=== PATIENT | female | born 1945 | race Caucasian/White ===

== ENCOUNTER 2017-01-01 10:29 | Emergency (ER) | payer OTHER, MEDICARE ==
[~2017-01-01] VITALS: Ht 162.6 cm; Wt 63.0 kg
[~2017-01-01 10:29] MED LIST: ASPI-1063 PO; BUPR-120 PO; CLOP75TA2 PO; PRO40 PO; VENL75TA54 PO
[2017-01-01 10:30] VITALS: BP_SYST 160
[2017-01-01] MEDS ORDERED: NACL 0.9% 1,000 ML IV ONE (11:01)
[2017-01-01] MEDS ORDERED: DIPHENHYDRAMINE INJ 50 MG/ML VIAL IVP ONE (11:15)
[2017-01-01] MEDS ORDERED: methylPREDNISolone SOD SUCC/PF 62.5 MG/ML VIAL IVP ONE (11:15)
[2017-01-01] MEDS ORDERED: FAMOTIDINE PF 20 MG/2 ML VIAL IVP ONE (11:15)
[2017-01-01 11:55] LABS: BASOPHILS % (AUTO) 0.7 % (0.0-2.0); EOSINOPHILS # (AUTO) 0.1 K/uL (0.0-0.4); EOSINOPHILS % (AUTO) 3.4 % (0.0-4.0); HEMOGLOBIN 12.5 g/dL (12.0-16.0); LYMPHOCYTES # (AUTO) 1.8 K/uL (1.0-5.5); LYMPHOCYTES % (AUTO) 43.4 % (20.5-51.5); MEAN CORPUSCULAR HEMOGLOBIN 27 pg (27-31); MEAN CORPUSCULAR HGB CONC 33 % (32-36); MEAN CORPUSCULAR VOLUME 81 fL (79.0-98.0); MONOCYTES # (AUTO) 0.5 K/uL (0.0-1.0); MONOCYTES % (AUTO) 11.3 % (1.7-9.3); NEUTROPHILS # (AUTO) 1.7 K/uL (1.8-7.7); NEUTROPHILS % (AUTO) 41.2 % (40.0-70.0); PLATELET COUNT (AUTO) 153 K/uL (130-430); RED BLOOD CELL COUNT(AUTO) 4.68 MIL/uL (4.2-6.2); WHITE BLOOD COUNT (AUTO) 4.1 K/uL (4.8-10.8)
[2017-01-01 11:58] LABS: CALCIUM 9.5 mg/dL (8.4-11.0); CHLORIDE 107 mmol/L (98-107); GLUCOSE 90 mg/dL (70-99); POTASSIUM 4.5 mmol/L (3.5-5.1); SODIUM SERUM 140 mmol/L (136-145); UREA NITROGEN, BLOOD 9 mg/dL (8-21)
[2017-01-01 11:59] LABS: ANION GAP < 3 (5-15); GFR AFRICAN AMERICAN 157 mL/min (>90)
[2017-01-01 12:03] LABS: ALANINE AMINOTRANSFERASE 13 U/L (12-78); ALBUMIN 3.6 g/dL (3.4-4.8); ASPARTATE AMINOTRANSFERASE 28 U/L (10-37); TOTAL BILIRUBIN 0.7 mg/dL (0.0-1.0); TOTAL PROTEIN, SERUM 7.2 g/dL (6.4-8.3)
[2017-01-01 13:30] VITALS: BP_SYST 131
== END 2017-01-01 13:30 | disposition home or self-care (01) ==
LOC: SED 10:29
DX: L50.0 Allergic urticaria (principal); T78.40XA Allergy, unspecified, initial encounter; R51 Headache; Z90.89 Acquired absence of other organs; Z90.49 Acquired absence of other specified parts of digestive tract; Z88.5 Allergy status to narcotic agent; Z86.19 Personal history of other infectious and parasitic diseases; X58.XXXA Exposure to other specified factors, initial encounter
CPT/HCPCS: 36415; 70450; 80053; 84484; 85025; 93005; 96361; 96374; 96375; 99285; J1200; J2930; J3490; J7030

== ENCOUNTER 2017-07-20 09:35 | Emergency (ER) | payer OTHER, MEDICARE ==
[~2017-07-20] VITALS: Ht 157.5 cm; Wt 62.1 kg
[2017-07-20 09:35] VITALS: BP_SYST 144
[2017-07-20] MEDS ORDERED: methylPREDNISolone SOD SUCC/PF 62.5 MG/ML VIAL IM ONE (10:30)
[2017-07-20] MEDS ORDERED: DIPHENHYDRAMINE INJ 50 MG/ML VIAL IM ONE (10:30)
[2017-07-20 11:15] VITALS: BP_SYST 139
== END 2017-07-20 11:15 | disposition home or self-care (01) ==
LOC: SED 09:35
DX: L50.9 Urticaria, unspecified (principal); Z88.5 Allergy status to narcotic agent; Z86.19 Personal history of other infectious and parasitic diseases; Z79.899 Other long term (current) drug therapy
CPT/HCPCS: 96372; 99284; J1200; J2930

== ENCOUNTER 2018-08-20 17:55 | Emergency (ER) | payer OTHER, MEDICARE ==
[~2018-08-20] VITALS: Ht 157.5 cm; Wt 61.2 kg
[2018-08-20 17:55] VITALS: BP_SYST 170
[~2018-08-20 17:55] MED LIST changes: -ASPI-1063 PO; +ASPI-1154 PO
[2018-08-20] MEDS ORDERED: NACL 0.9% 1,000 ML IV ONE (18:02)
[2018-08-20] MEDS ORDERED: ASPIRIN 81 MG TAB.CHEW PO ONE (18:15)
[2018-08-20] MEDS ORDERED: ONDANSETRON HCL 4 MG/2 ML VIAL IVP ONE (18:15)
[2018-08-20 18:23] LABS: BILIRUBIN,URINE NEGATIVE (NEGATIVE); BLOOD, URINE NEGATIVE (NEGATIVE); CLARITY/URINE CLEAR (CLEAR); COLOR,URINE YELLOW (YELLOW); GLUCOSE,URINE NEGATIVE (NEGATIVE); KETONES,URINE NEGATIVE (NEGATIVE); LEUKOCYTE ESTERASE ,URINE NEGATIVE (NEGATIVE); NITRITE, URINE NEGATIVE (NEGATIVE); PH,URINE 6.5 (5.0-8.0); PROTEIN URINE NEGATIVE (NEGATIVE); UROBILINOGEN,URINE 0.2 (0.2-1.0)
[2018-08-20 18:53] LABS: HEMATOCRIT 43.5 % (36-48); HEMOGLOBIN 14.3 g/dL (12.0-16.0); MEAN CORPUSCULAR HEMOGLOBIN 27 pg (27-31); MEAN CORPUSCULAR HGB CONC 33 % (32-36); MEAN CORPUSCULAR VOLUME 82 fL (79.0-98.0); NEUTROPHILS % (AUTO) 28.7 % (40.0-70.0); PLATELET COUNT (AUTO) 154 K/uL (130-430); RED BLOOD CELL COUNT(AUTO) 5.28 MIL/uL (4.2-6.2); RED CELL DISTRIBUTION WIDTH 15.6 % (9.0-15.0); WHITE BLOOD COUNT (AUTO) 5.4 K/uL (4.8-10.8)
[2018-08-20 18:54] LABS: BASOPHILS % (AUTO) 0.3 % (0.0-2.0); EOSINOPHILS # (AUTO) 0.1 K/uL (0.0-0.4); EOSINOPHILS % (AUTO) 2.1 % (0.0-4.0); LYMPHOCYTES # (AUTO) 3.4 K/uL (1.0-5.5); LYMPHOCYTES % (AUTO) 61.9 % (20.5-51.5); MONOCYTES # (AUTO) 0.4 K/uL (0.0-1.0); NEUTROPHILS # (AUTO) 1.6 K/uL (1.8-7.7)
[2018-08-20 18:57] LABS: ANION GAP 4 (5-15); CALCIUM 10.1 mg/dL (8.4-11.0); CHLORIDE 101 mmol/L (98-107); CREATININE 0.59 mg/dL (0.55-1.30); GLUCOSE 92 mg/dL (70-99); POTASSIUM 3.9 mmol/L (3.5-5.1); SODIUM SERUM 135 mmol/L (136-145); UREA NITROGEN, BLOOD 12 mg/dL (8-21)
[2018-08-20 19:00] LABS: PROTHROMBIN TIME 9.9 SECS (9.5-12.5)
[2018-08-20 19:01] LABS: ALANINE AMINOTRANSFERASE 19 U/L (12-78); ALBUMIN 4.5 g/dL (3.4-4.8); ASPARTATE AMINOTRANSFERASE 27 U/L (10-37); LIPASE 187 U/L (73-393); TOTAL BILIRUBIN 0.6 mg/dL (0.0-1.0)
[2018-08-20] MEDS ORDERED: DENO60DI SQ (19:56)
[2018-08-20] MEDS ORDERED: ROSU10TA PO (19:56)
[2018-08-20] MEDS ORDERED: ACET-2165 PO (19:56)
[2018-08-20] MEDS ORDERED: FAMO20TA8 PO (19:56)
[2018-08-20] MEDS ORDERED: ACETAMINOPHEN 325 MG TABLET PO ONE (20:30)
[2018-08-20] MEDS ORDERED: LORazepam 1 MG TABLET PO ONE (23:30)
[2018-08-20 23:45] VITALS: BP_SYST 146
== END 2018-08-20 23:45 | disposition home or self-care (01) ==
LOC: SED 17:55 → UNDOADMIN 20:28 → STU 20:28 → SED 23:45
DX: R00.2 Palpitations (principal); R07.89 Other chest pain; F41.9 Anxiety disorder, unspecified; R03.0 Elevated blood-pressure reading, without diagnosis of hypertension; Z90.49 Acquired absence of other specified parts of digestive tract; Z90.89 Acquired absence of other organs; Z86.19 Personal history of other infectious and parasitic diseases; Z79.899 Other long term (current) drug therapy
CPT/HCPCS: 36415; 71045; 73060; 80053; 81003; 82550; 83690; 83880; 84484; 85025; 85379; 85610; 85730; 93005; 96361; 96374; 99284; J2405; J7030

== ENCOUNTER 2021-03-07 19:54 | Emergency (ER) | payer OTHER, MEDICARE ==
[~2021-03-07] VITALS: Ht 162.6 cm; Wt 60.3 kg
[~2021-03-07 19:54] MED LIST changes: +ACET325T PO; -ASPI-1154 PO; -BUPR-120 PO; -CLOP75TA2 PO; +DENO60DI SQ; +FAMO20TA8 PO; -PRO40 PO; +ROSU10TA2 PO; -VENL75TA54 PO
[2021-03-07 19:58] VITALS: BP_SYST 158
[2021-03-07] MEDS ORDERED: NACL 0.9% 1,000 ML IV ONE (20:15)
[2021-03-07 20:54] LABS: BASOPHILS # (AUTO) 0.1 K/uL (0.0-0.2); BASOPHILS % (AUTO) 3.1 % (0.0-2.0); EOSINOPHILS # (AUTO) 0.1 K/uL (0.0-0.4); EOSINOPHILS % (AUTO) 2.2 % (0.0-4.0); HEMOGLOBIN 11.7 g/dL (12.0-16.0); LYMPHOCYTES % (AUTO) 23.8 % (20.5-51.5); MEAN CORPUSCULAR HEMOGLOBIN 28 pg (27-31); MEAN CORPUSCULAR HGB CONC 33 % (32-36); MEAN CORPUSCULAR VOLUME 83 fL (79.0-98.0); MONOCYTES # (AUTO) 0.4 K/uL (0.0-1.0); MONOCYTES % (AUTO) 8.3 % (1.7-9.3); NEUTROPHILS # (AUTO) 2.8 K/uL (1.8-7.7); NEUTROPHILS % (AUTO) 62.6 % (40.0-70.0); PLATELET COUNT (AUTO) 128 K/uL (130-430); RED BLOOD CELL COUNT(AUTO) 4.21 MIL/uL (4.2-6.2); RED CELL DISTRIBUTION WIDTH 16.2 % (9.0-15.0); WHITE BLOOD COUNT (AUTO) 4.4 K/uL (4.8-10.8)
[2021-03-07 20:57] LABS: ANION GAP 5 (5-15); CALCIUM 7.6 mg/dL (8.4-11.0); CHLORIDE 108 mmol/L (98-107); CREATININE 0.47 mg/dL (0.55-1.30); GLUCOSE 109 mg/dL (70-99); POTASSIUM 3.9 mmol/L (3.5-5.1); SODIUM SERUM 145 mmol/L (136-145); UREA NITROGEN, BLOOD 4 mg/dL (8-21)
[2021-03-07 21:04] LABS: ALANINE AMINOTRANSFERASE 10 U/L (12-78); ALBUMIN 3.2 g/dL (3.4-4.8); ASPARTATE AMINOTRANSFERASE 27 U/L (10-37); TOTAL BILIRUBIN 0.6 mg/dL (0.0-1.0)
[2021-03-07 22:01] LABS: BILIRUBIN,URINE NEGATIVE (NEGATIVE); CLARITY/URINE CLEAR (CLEAR); GLUCOSE,URINE NEGATIVE (NEGATIVE); KETONES,URINE 2+ (NEGATIVE); LEUKOCYTE ESTERASE ,URINE NEGATIVE (NEGATIVE); NITRITE, URINE NEGATIVE (NEGATIVE); PH,URINE 7.5 (5.0-8.0); PROTEIN URINE NEGATIVE (NEGATIVE); UROBILINOGEN,URINE 0.2 (0.2-1.0)
[2021-03-07 22:03] LABS: COLOR,URINE STRAW (YELLOW)
[2021-03-07 22:04] LABS: BLOOD, URINE TRACE (NEGATIVE)
[2021-03-07 22:13] LABS: BACTERIA,URINE RARE /HPF (None Seen); RBC,URINE 0-3 /HPF (0-3); WBC,URINE NONE SEEN /HPF (0-3)
[2021-03-07 23:48] VITALS: BP_SYST 156
== END 2021-03-07 23:48 | disposition still patient (30) ==
LOC: SED 19:54
DX: R00.2 Palpitations (principal); Z88.5 Allergy status to narcotic agent; Z79.899 Other long term (current) drug therapy
CPT/HCPCS: 36415; 71045; 74176; 76376; 80053; 81000; 82550; 83880; 84484; 85025; 93005; 96360; 99285; J7030

== ENCOUNTER 2023-08-19 08:53 | Emergency (ER) | payer OTHER, MEDICARE ==
[~2023-08-19] VITALS: Ht 157.5 cm; Wt 62.6 kg
[~2023-08-19 08:53] MED LIST changes: +MECL-225 PO; +NAPR-686 PO; +TRAM50TA2 PO
[2023-08-19 08:55] VITALS: BP_SYST 140; PULSE 73; RESP 17; TEMP 97.9; O2SAT 99
[2023-08-19 09:51] LABS: BASOPHILS % (AUTO) 0.3 % (0.0-2.0); EOSINOPHILS # (AUTO) 0.1 K/uL (0.0-0.4); EOSINOPHILS % (AUTO) 1.6 % (0.0-4.0); HEMATOCRIT 41.2 % (36-48); HEMOGLOBIN 13.8 g/dL (12.0-16.0); LYMPHOCYTES # (AUTO) 0.7 K/uL (1.0-5.5); LYMPHOCYTES % (AUTO) 14.3 % (20.5-51.5); MEAN CORPUSCULAR HEMOGLOBIN 28 pg (27-31); MEAN CORPUSCULAR HGB CONC 34 % (32-36); MEAN CORPUSCULAR VOLUME 82 fL (79.0-98.0); MONOCYTES # (AUTO) 0.4 K/uL (0.0-1.0); NEUTROPHILS # (AUTO) 3.6 K/uL (1.8-7.7); NEUTROPHILS % (AUTO) 75.8 % (40.0-70.0); PLATELET COUNT (AUTO) 189 K/uL (130-430); RED CELL DISTRIBUTION WIDTH 15.8 % (9.0-15.0); WHITE BLOOD COUNT (AUTO) 4.7 K/uL (4.8-10.8)
[2023-08-19] MEDS: predniSONE 20 MG TABLET PO ONE (10:00)
[2023-08-19] MEDS: FAMOTIDINE 20 MG TABLET PO ONE (10:00)
[2023-08-19] MEDS: DIPHENHYDRAMINE INJ 50 MG/ML VIAL IM ONE (10:00)
[2023-08-19 10:04] LABS: ANION GAP 9 (5-15); CALCIUM 9.7 mg/dL (8.4-11.0); CARBON DIOXIDE 29 mmol/L (23-29); CHLORIDE 104 mmol/L (98-107); CREATININE 0.83 mg/dL (0.55-1.30); GLUCOSE 91 mg/dL (74-106); POTASSIUM 4.6 mmol/L (3.5-5.1); SODIUM SERUM 142 mmol/L (136-145); UREA NITROGEN, BLOOD 10 mg/dL (8-21)
[2023-08-19 10:07] LABS: BILIRUBIN,URINE NEGATIVE (NEGATIVE); CLARITY/URINE CLEAR (CLEAR); COLOR,URINE YELLOW (YELLOW); GLUCOSE,URINE NEGATIVE (NEGATIVE); KETONES,URINE NEGATIVE (NEGATIVE); LEUKOCYTE ESTERASE ,URINE NEGATIVE (NEGATIVE); NITRITE, URINE NEGATIVE (NEGATIVE); PH,URINE 5.5 (5.0-8.0); PROTEIN URINE NEGATIVE (NEGATIVE); UROBILINOGEN,URINE 0.2 (0.2-1.0)
[2023-08-19 10:10] LABS: BLOOD, URINE TRACE (NEGATIVE)
[2023-08-19 10:14] LABS: BACTERIA,URINE MODERATE /HPF (None Seen); RBC,URINE 0-3 /HPF (0-3); WBC,URINE 0-3 /HPF (0-3)
[2023-08-19] MEDS ORDERED: DIPH25CA83 PO (11:08)
[2023-08-19] MEDS ORDERED: PRED20TA PO (11:08)
[2023-08-19] MEDS ORDERED: NITR-85 PO (11:08)
[2023-08-19 11:13] VITALS: BP_SYST 129; PULSE 70; RESP 18; TEMP 98; O2SAT 98
== END 2023-08-19 11:14 | disposition home or self-care (01) ==
LOC: SED 08:53
DX: T78.49XA Other allergy, initial encounter (principal); L50.9 Urticaria, unspecified; N39.0 Urinary tract infection, site not specified; R30.0 Dysuria; R31.9 Hematuria, unspecified; Z88.6 Allergy status to analgesic agent; Z79.899 Other long term (current) drug therapy; X58.XXXA Exposure to other specified factors, initial encounter
CPT/HCPCS: 99283; 80048; 81001; 85025; 87086; 36415; 96372; 81000; 81015; J7512; J1200

== ENCOUNTER 2024-03-04 09:10 | Emergency (ER) | payer OTHER, MEDICARE ==
[~2024-03-04] VITALS: Ht 167.6 cm; Wt 59.0 kg
[~2024-03-04 09:10] MED LIST changes: +DIPH25CA83 PO; +NITR-85 PO; +PRED20TA PO
[2024-03-04 09:24] VITALS: BP_SYST 144; PULSE 115; RESP 20; TEMP 98.3; O2SAT 98
[2024-03-04] MEDS: FAMOTIDINE 20 MG TABLET PO ONE (09:39)
[2024-03-04] MEDS: EPINEPHRINE HCL/PF 1 MG/ML AMP IM ONE ×2 (09:41→13:40)
[2024-03-04] MEDS: predniSONE 20 MG TABLET PO ONE (09:41)
[2024-03-04] MEDS ORDERED: EPIN0.3P3 IM (11:09)
[2024-03-04] MEDS ORDERED: PRED20TA PO (11:30)
[2024-03-04 11:41] VITALS: BP_SYST 138; PULSE 94; RESP 19; TEMP 98.5; O2SAT 98
[2024-03-04] MEDS ORDERED: methylPREDNISolone SOD SUCC/PF 62.5 MG/ML VIAL ONE (13:37)
[2024-03-04] MEDS: methylPREDNISolone SOD SUCC/PF 62.5 MG/ML VIAL IVP ONE (13:40)
[2024-03-04] MEDS: DIPHENHYDRAMINE INJ 50 MG/ML VIAL IVP ONE (13:40)
[2024-03-04 13:45] LABS: BASOPHILS % (AUTO) 0.2 % (0.0-2.0); EOSINOPHILS % (AUTO) 0.5 % (0.0-4.0); HEMATOCRIT 41.9 % (36-48); HEMOGLOBIN 13.7 g/dL (12.0-16.0); LYMPHOCYTES # (AUTO) 0.4 K/uL (1.0-5.5); LYMPHOCYTES % (AUTO) 8.6 % (20.5-51.5); MEAN CORPUSCULAR HEMOGLOBIN 27 pg (27-31); MEAN CORPUSCULAR HGB CONC 33 % (32-36); MEAN CORPUSCULAR VOLUME 83 fL (79.0-98.0); MONOCYTES # (AUTO) 0.1 K/uL (0.0-1.0); MONOCYTES % (AUTO) 2.6 % (1.7-9.3); NEUTROPHILS # (AUTO) 4.2 K/uL (1.8-7.7); NEUTROPHILS % (AUTO) 88.1 % (40.0-70.0); PLATELET COUNT (AUTO) 179 K/uL (130-430); RED BLOOD CELL COUNT(AUTO) 5.05 MIL/uL (4.2-6.2); RED CELL DISTRIBUTION WIDTH 15.9 % (9.0-15.0); WHITE BLOOD COUNT (AUTO) 4.8 K/uL (4.8-10.8)
[2024-03-04 13:51] LABS: ALANINE AMINOTRANSFERASE 11 U/L (12-78); ANION GAP 10 (5-15); ASPARTATE AMINOTRANSFERASE 35 U/L (10-37); CALCIUM 9.3 mg/dL (8.4-11.0); CARBON DIOXIDE 25 mmol/L (23-29); CHLORIDE 104 mmol/L (98-107); CREATININE 0.63 mg/dL (0.55-1.30); GLUCOSE 154 mg/dL (74-106); POTASSIUM 4.3 mmol/L (3.5-5.1); SODIUM SERUM 139 mmol/L (136-145); TOTAL BILIRUBIN 1.1 mg/dL (0.0-1.0); TOTAL PROTEIN, SERUM 7.6 g/dL (6.4-8.3); UREA NITROGEN, BLOOD 14 mg/dL (8-21)
[2024-03-04 13:52] LABS: INR 1.1 (0.8-1.2); PROTHROMBIN TIME 11.3 SECS (9.5-12.5)
[2024-03-04 14:20] LABS: BILIRUBIN,DIRECT 0.2 mg/dL (0.0-0.3)
[2024-03-04] MEDS ORDERED: FAMOTIDINE PF 20 MG/2 ML VIAL ONE (14:29)
[2024-03-04] MEDS ORDERED: METH-776 PO (16:06)
[2024-03-04] MEDS ORDERED: FAMO20TA8 PO (16:06)
[2024-03-04] MEDS ORDERED: DIPH25CA83 PO (16:06)
== END 2024-03-04 11:30 | disposition home or self-care (01) ==
LOC: SED 09:10
DX: L50.9 Urticaria, unspecified (principal); R06.02 Shortness of breath; Z88.5 Allergy status to narcotic agent; Z86.19 Personal history of other infectious and parasitic diseases; Z79.52 Long term (current) use of systemic steroids; Z79.899 Other long term (current) drug therapy
CPT/HCPCS: 99283; 80076; 80048; 85025; 85610; 85730; 36415; 96372; 83605; 82397; J7512; J0171; J1200; J2930; J3490

== ENCOUNTER 2024-03-04 13:39 | Emergency (ER) | payer OTHER, MEDICARE ==
[~2024-03-04] VITALS: Ht 167.6 cm; Wt 59.0 kg
[2024-03-04 13:39] VITALS: BP_SYST 117; PULSE 117; RESP 18; TEMP 98.2; O2SAT 98
[~2024-03-04 13:39] MED LIST changes: +EPIN0.3P3 IM
[2024-03-04] MEDS: methylPREDNISolone SOD SUCC/PF 62.5 MG/ML VIAL IVP ONE (14:24)
[2024-03-04] MEDS: DIPHENHYDRAMINE INJ 50 MG/ML VIAL IVP ONE ×2 (14:26→14:27)
[2024-03-04] MEDS: FAMOTIDINE PF 20 MG/2 ML VIAL IVP ONE (14:26)
[2024-03-04 14:43] LABS: BASOPHILS % (AUTO) 0.1 % (0.0-2.0); EOSINOPHILS % (AUTO) 0.2 % (0.0-4.0); HEMATOCRIT 41.7 % (36-48); HEMOGLOBIN 14.1 g/dL (12.0-16.0); LYMPHOCYTES # (AUTO) 0.3 K/uL (1.0-5.5); LYMPHOCYTES % (AUTO) 6.9 % (20.5-51.5); MEAN CORPUSCULAR HEMOGLOBIN 28 pg (27-31); MEAN CORPUSCULAR HGB CONC 34 % (32-36); MEAN CORPUSCULAR VOLUME 83 fL (79.0-98.0); MONOCYTES # (AUTO) 0.1 K/uL (0.0-1.0); MONOCYTES % (AUTO) 1.7 % (1.7-9.3); NEUTROPHILS # (AUTO) 4.6 K/uL (1.8-7.7); NEUTROPHILS % (AUTO) 91.1 % (40.0-70.0); PLATELET COUNT (AUTO) 173 K/uL (130-430); RED BLOOD CELL COUNT(AUTO) 5.05 MIL/uL (4.2-6.2)
[2024-03-04 14:48] LABS: ERYTHROCYTE SEDIMENTATION RATE 20 MM/HR (0-20)
[2024-03-04 14:51] LABS: ALANINE AMINOTRANSFERASE 11 U/L (12-78); ANION GAP 7 (5-15); ASPARTATE AMINOTRANSFERASE 35 U/L (10-37); CALCIUM 9.7 mg/dL (8.4-11.0); CARBON DIOXIDE 30 mmol/L (23-29); CHLORIDE 105 mmol/L (98-107); CREATININE 0.67 mg/dL (0.55-1.30); GLUCOSE 117 mg/dL (74-106); POTASSIUM 4.8 mmol/L (3.5-5.1); SODIUM SERUM 142 mmol/L (136-145); TOTAL PROTEIN, SERUM 7.7 g/dL (6.4-8.3); UREA NITROGEN, BLOOD 13 mg/dL (8-21)
[2024-03-04 14:57] LABS: INR 1.1 (0.8-1.2); PROTHROMBIN TIME 11.2 SECS (9.5-12.5)
[2024-03-04 15:19] LABS: BILIRUBIN,DIRECT 0.2 mg/dL (0.0-0.3)
[2024-03-04] MEDS ORDERED: METH-776 PO (16:06)
[2024-03-04] MEDS ORDERED: FAMO20TA8 PO (16:06)
[2024-03-04] MEDS ORDERED: DIPH25CA83 PO (16:06)
[2024-03-04 16:34] VITALS: BP_SYST 116; PULSE 95; RESP 16; TEMP 98.2; O2SAT 98
== END 2024-03-04 16:38 | disposition home or self-care (01) ==
LOC: SED 13:39
DX: L50.9 Urticaria, unspecified (principal); E11.9 Type 2 diabetes mellitus without complications; I10 Essential (primary) hypertension; J44.9 Chronic obstructive pulmonary disease, unspecified; Z86.19 Personal history of other infectious and parasitic diseases; Z79.52 Long term (current) use of systemic steroids; Z88.5 Allergy status to narcotic agent; Z79.899 Other long term (current) drug therapy; Z79.2 Long term (current) use of antibiotics
CPT/HCPCS: 80076; 80048; 85025; 85610; 85651; 85730; 36415; 99284; 96374; 96375; 82397; J1200; J3490; J2930